=== PATIENT | female | born 1940 | race Two or more races ===

== ENCOUNTER 2021-07-20 08:16 | Outpatient (CLI) | payer OTHER | END 2021-07-20 08:22 | disposition home or self-care (01) | LOC: LAB 08:16 | PROVIDERS: ATTEND Orthopaedic Surgery | DX: M85.89 Other specified disorders of bone density and structure, multiple sites (principal); E56.1 Deficiency of vitamin K; M81.8 Other osteoporosis without current pathological fracture; E88.89 Other specified metabolic disorders; E83.42 Hypomagnesemia ==

== ENCOUNTER → 2022-12-20 07:29 | Outpatient (CLI) | payer OTHER | END | disposition home or self-care (01) | LOC: LAB 07:29 | PROVIDERS: ATTEND Orthopaedic Surgery | DX: M85.9 Disorder of bone density and structure, unspecified (principal); E83.42 Hypomagnesemia; E56.1 Deficiency of vitamin K; E88.89 Other specified metabolic disorders; M81.8 Other osteoporosis without current pathological fracture ==

== ENCOUNTER 2023-03-04 11:41 | Outpatient (CLI) | payer OTHER | END 2023-03-04 11:47 | disposition home or self-care (01) | LOC: RAD 11:41 | PROVIDERS: ATTEND Orthopaedic Surgery | DX: M17.0 Bilateral primary osteoarthritis of knee (principal); M25.551 Pain in right hip; M25.552 Pain in left hip ==